=== PATIENT | female | born 1970 | race Caucasian/White ===

== ENCOUNTER 2016-06-28 05:09 | Observation (INO) | payer OTHER ==
--- NOTE | ~2016-06-28 | TEE ---
Transesophageal Echocardiogram [facility] [address] [place]. [address] NAME: MARIA GUADALUPE SNOW : 66 STATUS : REG REF PAT#: [id number] AGE: 45 ADM/REG DATE : 06/28/16 MR#: [id number] REPORT SERV DATE: 06/28/16 DICTATED BY: ANNIE CRANE DATE: 06/28/16 REPORT STATUS : Draft TRANSCRIBED BY: GERALDO DATE: 06/28/16 REPORT TITLE: KANWAL This is a 45-year-old female with prior atrial fibrillation ablation in the EP lab. The risks and benefits of the procedure were explained to the patient and she agreed to proceed. The patient was sedated with propofol per Anesthesia. She was intubated without difficulties. Vital signs were closely monitored and remained stable. FINDINGS: 1. Normal LV size and systolic function. Estimated ejection fraction of 50-55%. 2. Normal left atrial appendage without evidence of thrombus with normal left atrial appendage outflow velocity around 40 cm/second. 3. Normally connected pulmonary veins. 4. Normal RV size and systolic function. 5. Mitral opens adequately. There is trace mitral valve regurgitation. 6. Aortic valve is tricuspid, opens adequately without significant regurgitation. 7. Trace tricuspid valve regurgitation. 8. Grossly normal pulmonary valve. CONCLUSION: NO EVIDENCE OF LEFT ATRIAL OR LEFT ATRIAL APPENDAGE THROMBUS. FINDINGS COMMUNICATED TO DR. LANTIGUA. OJL/GERALDO Annie Crane M.D. / [id number] CC: Rigoberto Lantigua M.D.
[~2016-06-28 05:09] MED LIST: ASA5GR PO; CARDCD120 PO; IBU800 PO; LEXAPRO10 PO
[2016-06-28 06:36] LABS: BASOPHILS 0.1 %; BASOPHILS ABSOLUTE 0.01 10/3/uL (0.0-0.16); EOSINOPHILS 1.2 %; EOSINOPHILS ABSOLUTE 0.09 10/3/uL (0.0-0.53); HEMOGLOBIN 15.2 g/dL (12.0-16.0); IMMATURE GRANULOCYTES 0.3 %; IMMATURE GRANULOCYTES ABSOLUTE 0.02 10/3/uL (0.0-0.11); LYMPHOCYTES 33.4 %; LYMPHOCYTES ABSOLUTE 2.55 10/3/uL (0.67-4.30); MEAN CORPUS HGB CONC 33.8 g/dL (32.0-36.0); MONOCYTES 7.3 %; MONOCYTES ABSOLUTE 0.56 10/3/uL (0.21-1.20); NEUTROPHILS 57.7 %; NEUTROPHILS ABSOLUTE 4.41 10/3/uL (2.02-8.40); PLATELET COUNT 251 10/3/uL (150-400); RBC DISTRIBUTION WIDTH 12.6 % (12.0-16.0); RED CELL COUNT 4.91 10/6/uL (4.0-5.6); WHITE BLOOD CELLS 7.6 10/3/uL (4.5-10.5)
[2016-06-28 06:44] LABS: MANUAL DIFF NO %; MEAN CORPUSCULAR VOLUME 91.6 fL (80-100)
[2016-06-28 06:51] LABS: BUN (BLOOD UREA NITROGEN) 20 MG/DL (6-23); CALCIUM, SERUM 8.4 MG/DL (8.5-10.4); CHLORIDE, SERUM 109 MMOL/L (96-112); CO2 (CARBON DIOXIDE) 23 MMOL/L (24-34); CREATININE 1.05 MG/DL (0.55-1.02); GFR AFRICAN AMERICAN 73 ML/MIN (>=60); GFR NON AFRICAN AMERICAN 63 ML/MIN (>=60); GLUCOSE, SERUM 106 MG/DL (60-99); SODIUM, SERUM 141 MMOL/L (135-148)
[2016-06-28 06:52] LABS: POTASSIUM, SERUM 4.1 MMOL/L (3.5-5.3)
[2016-06-29] MEDS ORDERED: ELIQUIS 5 MG TAB5 MG PO (09:34)
== END 2016-06-29 09:51 | disposition home or self-care (01) ==
LOC: CORLMH 05:09 → SSU1 05:18
PROVIDERS: Internal Medicine Clinical Cardiac Electrophysiology
PROC: 4A023FZ Measurement of Cardiac Rhythm, Percutaneous Approach (ICD-10-PCS; principal; 2016-06-28)
PROC: 4A0234Z Measurement of Cardiac Electrical Activity, Percutaneous Approach (ICD-10-PCS; 2016-06-28)
PROC: 02583ZZ Destruction of Conduction Mechanism, Percutaneous Approach (ICD-10-PCS; 2016-06-28)
PROC: 02K83ZZ Map Conduction Mechanism, Percutaneous Approach (ICD-10-PCS; 2016-06-28)
DX: I48.0 Paroxysmal atrial fibrillation (principal); E66.9 Obesity, unspecified; F41.9 Anxiety disorder, unspecified; Z90.710 Acquired absence of both cervix and uterus; Z79.82 Long term (current) use of aspirin; Z79.899 Other long term (current) drug therapy; Z68.31 Body mass index [BMI] 31.0-31.9, adult
CPT/HCPCS: 80048; 85025; 85347; 93005; 93312; 93320; 93325; 93613; 93623; 93656; 93662; 96374; A9270-GY; C1730; C1732; C1733; C1759; C1781; C1894; G0378; J1885; J2250; J2370; J2405; J2710; J2720; J3010; Q9967